=== PATIENT | male | born 1975 ===

== ENCOUNTER 2025-06-18 06:30 | Day surgery (SDC) | payer OTHER, SELFPAY ==
[2025-06-18] VITALS (9 sets, daily range): BP systolic 134–155; BP diastolic 83–105; BMI 36.6
[2025-06-18] MEDS: NORMOSOL-R/PLASMALYTE-A 1000 IV (11:16)
[2025-06-18 11:21] LABS: Glucose - Point of Care 244 mg/dl (70-99)
[2025-06-18] MEDS: NOVOLOG vial 2 UNITS SC ×2 (12:14→14:34)
[2025-06-18 14:30] LABS: Glucose - Point of Care 225 mg/dl (70-99)
== END 2025-06-18 16:00 | disposition home or self-care (01) ==
LOC: SDS 06:30
PROVIDERS: ATTENDING PHYSICIAN Student in an Organized Health Care Education/Training Program
DX: Z30.2 Encounter for sterilization (principal); N47.1 Phimosis
CPT/HCPCS: 54150; 55250; 82962; 88302